=== PATIENT | female | born 1980 | race Caucasian/White ===

== ENCOUNTER 2016-12-13 10:55 | Inpatient (IN) | payer MEDICAID ==
[~2016-12-13] VITALS: Ht 165.1 cm; Wt 95.5 kg
[2016-12-13] MEDS ORDERED: LACTATED RINGER'S 1,000 ML IV PRN (11:30)
[2016-12-13] MEDS ORDERED: CARBOPROST 250 MCG INJ IM PRN (11:30)
[2016-12-13] MEDS ORDERED: MISOPROSTOL 200 MCG TAB PR PRN (11:30)
[2016-12-13] MEDS ORDERED: METHYLERGONOVINE 0.2 MG INJ IM PRN (11:30)
[2016-12-13] MEDS ORDERED: OXYTOCIN 30 UNITS/LR 500 ML IV PRN (11:30)
[2016-12-13] MEDS: LACTATED RINGER'S 1,000 ML IV SCH ×3 (11:36→21:41)
[2016-12-13 11:51] VITALS: Ht 165.1 cm; Wt 95.5 kg
[2016-12-13 11:53] VITALS: BP 131/58; PULSE 76; RESP 18
[2016-12-13 12:18] LABS: ADD SCAN DIFF NO
[2016-12-13] MEDS ORDERED: ONDANSETRON 4 MG INJ IV STA (12:29)
[2016-12-13] MEDS ORDERED: OXYTOCIN 30 UNITS/LR 500 ML IV SCH (12:30)
[2016-12-13] MEDS ORDERED: CITRIC ACID/SODIUM CITRATE 15 ML CUP PO ONE (12:30)
[2016-12-13] MEDS ORDERED: CEFAZOLIN 2 GM/50 ML (PMX) 50 ML IV SCH (12:30)
[2016-12-13 12:41] LABS: INR 0.89; PT RATIO 0.9
[2016-12-13 12:42] LABS: ABNORMAL IP MESSAGE 1; BASOPHILS % 0.2 % (0.0-2.0); EOSINOPHILS % 0.4 % (0.0-7.0); HEMATOCRIT 37.2 % (37.0-47.0); HEMOGLOBIN 11.4 g/dl (12.0-16.0); LYMPHOCYTES # 1.5 10^3/ul (0.8-2.9); LYMPHOCYTES % 27.6 % (15.0-51.0); MEAN CORPUSCULAR HEMOGLOBIN 24.1 pg (29.0-33.0); MEAN CORPUSCULAR HGB CONC 30.6 g/dl (32.0-37.0); MEAN CORPUSCULAR VOLUME 78.6 fl (82.0-101.0); MEAN PLATELET VOLUME 10.6 fl (7.4-10.4); MONOCYTE # 0.4 10^3/ul (0.3-0.9); MONOCYTES % 7.3 % (0.0-11.0); NEUTROPHIL # 3.6 10^3/ul (1.6-7.5); NEUTROPHILS % 64.3 % (39.0-77.0); PARTIAL THROMBOPLASTIN TIME 25.1 Sec (25.0-35.0); PLATELET COUNT 216 10^3/UL (140-415); RED BLOOD COUNT 4.73 10^6/ul (4.20-5.40); RED CELL DISTRIBUTION WIDTH 25.4 % (11.5-14.5); WHITE BLOOD COUNT 5.6 10^3/ul (4.8-10.8)
--- NOTE | 2016-12-13 20:55 | HP ---
Date/Time of Note Date/Time of Note DATE: 12/13/16 TIME: 20:49 OB - History Hx of Present Chief Complaint: Low SINCERE Estimated Due Date: Dec 27, 2016 : 4 Para: 2 Spontaneous : 1 Therapeutic : 0 Care: Limited Care Ultrasounds: Other (SINCERE 6.6) Abnormal Ultrasound Findings: SINCERE 6.6 Obstetrical Complications: None Medical Complications: None Past Family/Social History * Past Medical, Surgical, Family and Obstetric Histories reviewed from chart. GBS Status: Negative OB Admission Exam Vital Signs Vital Signs Vital Signs Date Time Temp Pulse Resp B/P Pulse Ox O2 Delivery O2 Flow Rate FiO2 12/13/16 11:53 98.0 76 18 131/58 Room Air Physical Exam HEENT: WNL Heart: Rhythm Normal Lungs: Clear Abdomen: WNL Extremities: Normal Heart Rate: 130's Accelerations: Accelerations Present Decelerations: No Decelerations Varibility: Moderate Last 72 hours Lab Results CBC & BMP 12/13/16 11:37 OB Assessment/Plan Reason for admission: other (Borderline oligohydramnios) Plan: Other (IV hydration, repeat SINCERE on 12/14/2016) JIM HAHN MD December 13, 2016 20:55
[2016-12-14] MEDS: LACTATED RINGER'S 1,000 ML IV SCH (04:25)
--- NOTE | 2016-12-14 09:29 | RADRPT ---
PROCEDURE: Limited OB ultrasound CLINICAL INDICATION: Oligohydramnios. Evaluate fluid volume. TECHNIQUE: Sonographic evaluation to assess the amniotic fluid volume was performed. Transabdomin al imaging of the gravid uterus was performed. COMPARISON: OB ultrasound dated 12/13/2016. FINDINGS: Single live intrauterine with cardiac activity is identified with a heart rate of 12 6 beats per minute. There is a cephalic lie and a anterior, grade 1/2 placenta. The amniotic -fluid volume equals approximately 9.81 cm. IMPRESSION: Amniotic fluid volume equals 9.81 cm, which is within normal limits. RPTAT: HLBP .Alverto Kearns MD, Date Time Electronically viewed and signed by .Alverto Kearns MD, MD on 12/14/2016 09:28 .P/
[2016-12-14] MEDS ORDERED: PRENAT PO (10:53)
--- NOTE | 2016-12-17 18:25 | DS ---
Date/Time of Note Date/Time of Note DATE: 12/17/16 TIME: 18:22 Obstetrical Discharge Record Final Diagnosis Final Diagnosis: Term not delivered Complications Other (SINCERE 6 on 12/13/2016. After IV hydration, SINCERE 9 on 12/14/2016.) Condition on Discharge Physical Assessment Voiding: Yes Bowel Movement: Yes Calf Tenderness: No Patient Condition: Stable JIM HAHN MD December 17, 2016 18:25
== END 2016-12-14 12:23 | disposition home or self-care (01) | DRG 782 ==
LOC: L-D 11:12
PROVIDERS: ADMIT Obstetrics & Gynecology; ATTEND Obstetrics & Gynecology
DX: O41.03X0 Oligohydramnios, third trimester, not applicable or unspecified (principal); Z3A.38 38 weeks gestation of pregnancy
CPT/HCPCS: 76815; 85025; 85610; 85730; 86592; 86900; 86901; J7120

== ENCOUNTER 2016-12-17 14:26 | Inpatient (IN) | payer MEDICAID ==
[~2016-12-17] VITALS: Ht 165.1 cm; Wt 101.7 kg
[~2016-12-17 14:26] MED LIST: PRENAT PO
--- NOTE | 2016-12-17 15:21 | RADRPT ---
PROCEDURE: US OB biophysical profile. CLINICAL INDICATION: evaluation TECHNIQUE: Multiple sonographic images of the pelvis were obtained. The images were reviewed on a PACS workstation. COMPARISON: Obstetrical ultrasound from 12/14/2016 FINDINGS: There is a single viable intrauterine gestation. Cardiac activity is present with 107 beats per min lauren. There is a vertex presentation. The placenta is anterior. There is no evidence of placental abruption. There is a low amount of amniotic fluid with an SINCERE = 6.2 cm. Biophysical profile: movement 2/2 tone 2/2. breathing 2/2 SINCERE 2/2 Total 02/25 RPTAT: AA . IMPRESSION: Normal biophysical profile. Low heart rate of 107 beats per minute. Low SINCERE of 6.2 cm, compared with an SINCERE of 9.8 cm on 12/14/2016. Physician Hever Date Time Electronically viewed and signed by Physician Hever on 12/17/2016 15:21 /
[2016-12-17 15:32] VITALS: Ht 165.1 cm; Wt 101.7 kg
[2016-12-17 15:33] VITALS: BP 135/73; PULSE 72; RESP 18
--- NOTE | 2016-12-17 17:58 | HP ---
Date/Time of Note Date/Time of Note DATE: 12/17/16 TIME: 17:52 OB - History Hx of Present Chief Complaint: Antepartum testing Last Menstrual Period: Mar 22, 2016 Estimated Due Date: Dec 27, 2016 : 4 Para: 2 Spontaneous : 1 Therapeutic : 0 Care: Limited Care Ultrasounds: Other (Borderline oligohydramnios) Abnormal Ultrasound Findings: SINCERE 6.2 Obstetrical Complications: None Medical Complications: None Past Family/Social History * Past Medical, Surgical, Family and Obstetric Histories reviewed from chart. GBS Status: Negative OB Admission Exam Vital Signs Vital Signs Vital Signs Date Time Temp Pulse Resp B/P Pulse Ox O2 Delivery O2 Flow Rate FiO2 12/17/16 15:33 98.1 72 18 135/73 Room Air Physical Exam HEENT: WNL Heart: Rhythm Normal Lungs: Clear Abdomen: WNL Extremities: Normal Cervical Dilatation: 1cm Effacement: 50% Station: -1 Membranes: Intact Heart Rate: 120's Accelerations: Accelerations Present Decelerations: No Decelerations Varibility: Moderate OB Assessment/Plan Reason for admission: other (Borderline oligohydramnios) Plan: Other (Admit, IV hydration, repeat SINCERE on 12/18/2016) JIM HAHN MD December 17, 2016 17:58
[2016-12-17] MEDS: LACTATED RINGER'S 1,000 ML IV SCH (19:28)
[2016-12-18] MEDS: LACTATED RINGER'S 1,000 ML IV SCH ×4 (00:19→22:26)
--- NOTE | 2016-12-18 08:55 | RADRPT ---
PROCEDURE: US OB biophysical profile. CLINICAL INDICATION: decreased movements TECHNIQUE: Multiple sonographic images of the pelvis were obtained. The images were reviewed on a PACS workstation. COMPARISON: 12/17/2016 FINDINGS: There is a single viable intrauterine gestation. Cardiac activity is present with 134 beats per min [place]. There is a vertex presentation. The placenta is anterior. There is no evidence of placental abruption. There is a normal amount of amniotic fluid with an SICNERE = 9.3 cm. Biophysical profile: movement 2/2 tone 2/2. breathing 2/2 SINCERE 2/2 Total 02/25 RPTAT: AA . IMPRESSION: Normal biophysical profile. . .Emanuel Espinoza MD, MD Date Time Electronically viewed and signed by .Emanuel Espinoza MD, MD on 12/18/2016 08:54 .S/
--- NOTE | 2016-12-18 09:59 | RADRPT ---
PROCEDURE: US OB. CLINICAL INDICATION: Size and dates TECHNIQUE: Multiple sonographic images of the pelvis and gravid uterus were obtained. The images were reviewed on a PACS workstation. COMPARISON: 12/17 FINDINGS: There is a single viable intrauterine gestation. Cardiac activity is present with 140 beats per min [id number]. There is a vertex presentation. The placenta is anterior. There is no evidence for an abruption or placenta previa. Measurements were made in order to determine age. The results are as follows: BPD =9.8 cm HC =34.1 cm AC =36.1 cm FL =7.2 cm Estimated gestational age of approximately 38 weeks and 2 days based on ultrasound measurements. Clinical age: 38 weeks and 5 days. The estimated date of delivery is 12/30/16, based on ultrasound measurements. The EFW = 3744 g, 80%, based on LMP age. RPTAT: AA IMPRESSION: Single viable intrauterine gestation of approximately 38 weeks and 2 days based on ultrasound measu rements. .Emanuel Espinoza MD, MD Date Time Electronically viewed and signed by .Emanuel Espinoza MD, on 12/18/2016 09:59 .S/
--- NOTE | 2016-12-18 20:27 | QN ---
Documentation Comment No complaint Afebrile VSS Strip Reactive SINCERE improved Will continue to monitor in hospital per recommendation of Perinatology. JIM HAHN MD December 18, 2016 20:27
--- NOTE | 2016-12-18 23:11 | NSTRPT ---
NST Information Datetime Report Generated by CPN: 12/18/2016 23:11 Datetime: 12/13/2016 09:08 NST Information EGA: 38.0 Test Number: 2 Time on Monitor: 12/13/2016 09:48 Time off Monitor: 12/13/2016 10:24 NST Duration (Min): 36 Reason for NST: Other Reason for NST Other: Borderline Oligohydramnios Test and Monitor Explained: Monitor Explained; Test Explained; Verbalized Understanding; Breastfee ding Info Given Pulse: 77 Resp: 18 SBP: 136 DBP: 61 Test Evaluation NST Interventions: Reposition Patient; Acoustic Stimulation Patient States Movement: Present Contraction Frequency: X2(mild) FHR Baseline : 120 Variability: Moderate 6-25bpm Accelerations: 15X15 Decelerations: None FHR Category: Category I NST Results: Reactive Provider Notified: Dr Torres Comments: To u/s. SINCERE 6.6cm. CEPHALIC. 1026-Dr Torres paged. 1037-Report to Dr Torres, order received to adm to 2NE for IV hydration. Report called to Gildra RN/L_D. POC explained to pt states understanding and compliance. 1045-To L_D , with follow up NST appt for 12/17 Electronically Signed By E-Signature: with User ID: [id number] Datetime: 12/11/2016 08:45 NST Information EGA: 37.5 Datetime: 12/11/2016 08:40 NST Duration (Min): 35
[2016-12-19] MEDS: LACTATED RINGER'S 1,000 ML IV SCH ×3 (06:04→22:07)
--- NOTE | 2016-12-19 20:24 | QN ---
Documentation Comment No complaint Afebrile VSS Strip Reactive Plan: Induce labor on 12/20/2016. JIM HAHN MD Dec 19, 2016 20:24
[2016-12-20] MEDS ORDERED: OXYTOCIN 30 UNITS/LR 500 ML IV PRN (06:30)
[2016-12-20] MEDS ORDERED: MISOPROSTOL 200 MCG TAB PR PRN (06:30)
[2016-12-20] MEDS ORDERED: CARBOPROST 250 MCG INJ IM PRN (06:30)
[2016-12-20] MEDS ORDERED: BUTORPHANOL 2 MG INJ IV PRN (06:30)
[2016-12-20] MEDS ORDERED: OXYTOCIN 30 UNITS/LR 500 ML IV SCH (06:30)
[2016-12-20] MEDS ORDERED: IBUPROFEN 600 MG TAB PO PRN (06:30)
[2016-12-20] MEDS ORDERED: METHYLERGONOVINE 0.2 MG INJ IM PRN (06:30)
[2016-12-20] MEDS ORDERED: LIDOCAINE 1% (MPF) 30 ML INJ INJ PRN (06:30)
[2016-12-20] MEDS: MISOPROSTOL 25 MCG CAPSULE PO SCH ×4 (09:05→21:54)
[2016-12-20 09:44] LABS: ADD SCAN DIFF NO
[2016-12-20 09:58] LABS: ABNORMAL IP MESSAGE 1; BASOPHILS % 0.4 % (0.0-2.0); EOSINOPHILS # 0.1 10^3/ul (0.0-0.5); EOSINOPHILS % 1.2 % (0.0-7.0); HEMATOCRIT 36.2 % (37.0-47.0); HEMOGLOBIN 11.3 g/dl (12.0-16.0); LYMPHOCYTES # 1.4 10^3/ul (0.8-2.9); LYMPHOCYTES % 26.8 % (15.0-51.0); MEAN CORPUSCULAR HEMOGLOBIN 24.5 pg (29.0-33.0); MEAN CORPUSCULAR HGB CONC 31.2 g/dl (32.0-37.0); MEAN CORPUSCULAR VOLUME 78.5 fl (82.0-101.0); MEAN PLATELET VOLUME 10.3 fl (7.4-10.4); MONOCYTE # 0.3 10^3/ul (0.3-0.9); MONOCYTES % 5.5 % (0.0-11.0); NEUTROPHIL # 3.3 10^3/ul (1.6-7.5); NEUTROPHILS % 65.5 % (39.0-77.0); PLATELET COUNT 219 10^3/UL (140-415); RED BLOOD COUNT 4.61 10^6/ul (4.20-5.40); RED CELL DISTRIBUTION WIDTH 24.5 % (11.5-14.5); WHITE BLOOD COUNT 5.1 10^3/ul (4.8-10.8)
[2016-12-20 10:19] LABS: INR 0.91; PROTIME 12.2 Sec (12.2-14.2)
[2016-12-20 10:20] LABS: PARTIAL THROMBOPLASTIN TIME 25.8 Sec (25.0-35.0)
[2016-12-20] MEDS ORDERED: LACTATED RINGER'S 1,000 ML IV PRN (11:00)
[2016-12-20] MEDS: LACTATED RINGER'S 1,000 ML IV SCH ×2 (13:13→18:00)
[2016-12-21] MEDS: MISOPROSTOL 25 MCG CAPSULE PO SCH (01:00)
[2016-12-21] MEDS: LACTATED RINGER'S 1,000 ML IV SCH ×2 (02:04→04:12)
[2016-12-21] MEDS ORDERED: FENTAnyl 2MCG/ML-ROPIV 0.2% 100 ML ONE (03:41)
[2016-12-21] MEDS: OXYTOCIN 30 UNITS/LR 500 ML IV SCH ×2 (11:40→12:53)
--- NOTE | 2016-12-21 13:25 | LDN ---
Date/Time of Note Date/Time of Note DATE: 12/21/16 TIME: 13:22 Delivery Summary Weeks of Gestation 39 weeks and 1 day Placenta Delivered: Spontaneously Meconium: Thick Episiotomy: No Perineal laceration: 1 Laceration repair: Second degree laceration repaired with 3-0 Vicryl Anesthesia type: Epidural Estimated blood loss: 200 Sponge & Needle done & correct: Yes All needle counts correct: Yes Any foreign bodies felt in the: No Problems: Delivery Information Sex Infant Sex: male Apgars 1 Minute: 8 5 Minute: 9 Suctioning Nose & mouth suctioned at alessia: Yes Delee suction performed: No Umbilical Cord Umbilical cord with: 3 Vessels Cord presentations: nuchal cord Nuchal cord present X: 2 Cord Blood was obtained: Yes Mother & Baby Disposition Disposition Mom & Baby to Maternity; Good: Yes JIM HAHN MD Dec 21, 2016 13:25
[2016-12-21] MEDS: LACTATED RINGER'S 1,000 ML IV* SCH ×2 (13:59→21:59)
[2016-12-21 14:00] VITALS: BP 139/71; PULSE 64; RESP 64
[2016-12-21] MEDS ORDERED: DIBUCAINE 1% 30 GM OINT PR PRN (14:00)
[2016-12-21] MEDS ORDERED: ACETAMINOPHEN 325 MG TAB PO PRN (14:00)
[2016-12-21] MEDS ORDERED: MISOPROSTOL 200 MCG TAB PR PRN (14:00)
[2016-12-21] MEDS ORDERED: METHYLERGONOVINE 0.2 MG INJ IM PRN (14:00)
[2016-12-21] MEDS ORDERED: CARBOPROST 250 MCG INJ IM PRN (14:00)
[2016-12-21] MEDS ORDERED: WITCH HAZEL/GLYCERIN PAD PR PRN (14:00)
[2016-12-21] MEDS ORDERED: ACETAMINOPHEN/CODEINE #3 TAB PO PRN (14:00)
[2016-12-21] MEDS ORDERED: OXYTOCIN 30 UNITS/LR 500 ML IV PRN (14:00)
[2016-12-21] MEDS ORDERED: BENZOCAINE 20% 56 ML SPRAY TOP PRN (14:00)
[2016-12-21 16:00] VITALS: BP 129/62; RESP 18
[2016-12-21] MEDS: IBUPROFEN 600 MG TAB PO SCH ×2 (17:22→23:43)
[2016-12-21] MEDS ORDERED: LANOLIN 7 GM TUBE TOP PRN (17:30)
[2016-12-21 20:00] VITALS: BP 118/65; PULSE 82; RESP 20
[2016-12-21] MEDS: SENNA/DOCUSATE NA (8.6MG/50MG) TAB PO SCH (21:06)
[2016-12-22] VITALS: BP 116/65; PULSE 73; RESP 18
[2016-12-22 04:00] VITALS: BP 114/58; PULSE 66; RESP 18
[2016-12-22] MEDS: IBUPROFEN 600 MG TAB PO SCH ×4 (05:31→23:32)
[2016-12-22 08:09] LABS: ADD SCAN DIFF NO
[2016-12-22 08:16] LABS: ABNORMAL IP MESSAGE 1; BASOPHILS % 0.3 % (0.0-2.0); EOSINOPHILS # 0.1 10^3/ul (0.0-0.5); EOSINOPHILS % 0.8 % (0.0-7.0); HEMOGLOBIN 9.9 g/dl (12.0-16.0); LYMPHOCYTES # 2.1 10^3/ul (0.8-2.9); LYMPHOCYTES % 18.7 % (15.0-51.0); MEAN CORPUSCULAR HEMOGLOBIN 24.3 pg (29.0-33.0); MEAN CORPUSCULAR HGB CONC 30.9 g/dl (32.0-37.0); MEAN CORPUSCULAR VOLUME 78.6 fl (82.0-101.0); MONOCYTE # 0.7 10^3/ul (0.3-0.9); MONOCYTES % 5.9 % (0.0-11.0); NEUTROPHIL # 8.3 10^3/ul (1.6-7.5); NEUTROPHILS % 73.7 % (39.0-77.0); PLATELET COUNT 204 10^3/UL (140-415); RED BLOOD COUNT 4.07 10^6/ul (4.20-5.40); RED CELL DISTRIBUTION WIDTH 24.4 % (11.5-14.5); WHITE BLOOD COUNT 11.2 10^3/ul (4.8-10.8)
[2016-12-22 09:04] VITALS: BP 108/57; PULSE 76; RESP 17
[2016-12-22] MEDS: SENNA/DOCUSATE NA (8.6MG/50MG) TAB PO SCH ×2 (09:12→21:12)
[2016-12-22 15:42] VITALS: BP 114/59; PULSE 76
--- NOTE | 2016-12-22 18:44 | QN ---
Documentation Comment No complaint Afebrile VSS PPD 1 Continue with present care. JIM HAHN MD Dec 22, 2016 18:44
[2016-12-22 20:00] VITALS: BP 127/60; PULSE 67; RESP 18
[2016-12-23 04:00] VITALS: BP 117/78; PULSE 61; RESP 18
[2016-12-23] MEDS: IBUPROFEN 600 MG TAB PO SCH ×3 (05:33→17:22)
[2016-12-23 07:30] VITALS: BP 120/82; PULSE 66; RESP 19
[2016-12-23] MEDS ORDERED: DIPHTH/TET/ACEL PERTUSS (ADULT) 0.5 ML VIAL IM* ONE (09:00)
[2016-12-23] MEDS: SENNA/DOCUSATE NA (8.6MG/50MG) TAB PO SCH (10:21)
[2016-12-23 15:54] VITALS: BP 126/73; PULSE 63; RESP 19
--- NOTE | 2016-12-23 19:28 | DS ---
Date/Time of Note Date/Time of Note DATE: 12/23/16 TIME: 19:27 Obstetrical Discharge Record Final Diagnosis Final Diagnosis: Term delivered Vaginal Delivery Obstetrical Delivery: Spontaneous Complications Other (oligohydramnios) Induction: Yes Condition on Discharge Physical Assessment Voiding: Yes Bowel Movement: Yes Breast: Soft, non-tender Fundus: Firm Calf Tenderness: No Patient Condition: Stable JIM HAHN MD Dec 23, 2016 19:28
== END 2016-12-23 20:35 | disposition home or self-care (01) | DRG 775 ==
LOC: OBT 14:26 → L-D 14:30 → OBG 18:00 → OBT 18:00 → L-D 12-20 08:01 → PP1 12-21 13:58
PROVIDERS: ADMIT Obstetrics & Gynecology; ATTEND Obstetrics & Gynecology
PROC: 10E0XZZ Delivery of Products of Conception, External Approach (ICD-10-PCS; principal; 2016-12-21)
PROC: 0KQM0ZZ Repair Perineum Muscle, Open Approach (ICD-10-PCS; 2016-12-21)
PROC: 3E033VJ Introduction of Other Hormone into Peripheral Vein, Percutaneous Approach (ICD-10-PCS; 2016-12-21)
DX: O70.1 Second degree perineal laceration during delivery (principal); Z37.0 Single live birth; O41.03X0 Oligohydramnios, third trimester, not applicable or unspecified; O69.81X0 Labor and delivery complicated by cord around neck, without compression, not applicable or unspecified; Z3A.39 39 weeks gestation of pregnancy
CPT/HCPCS: 62319; 76815; 76818; 85025; 85610; 85730; 86592; 86900; 86901; 87340; 90715; 94760; G0463; J2590; J3010; J7120